=== PATIENT | male | born 1955 | race Caucasian/White ===

== ENCOUNTER 2021-10-29 06:00 | Inpatient (IN) | payer BC, OTHER, SELFPAY ==
[2021-10-25 11:14] LABS: BASOPHILS # (AUTO) 0.1 K/uL (0.0-0.2); BASOPHILS % (AUTO) 0.9 % (0.0-2.0); EOSINOPHILS # (AUTO) 0.6 K/uL (0.0-0.4); EOSINOPHILS % (AUTO) 8.7 % (0.0-4.0); HEMATOCRIT 41.2 % (36-54); HEMOGLOBIN 14.6 g/dL (14.0-18.0); LYMPHOCYTES # (AUTO) 1.4 K/uL (1.0-5.5); LYMPHOCYTES % (AUTO) 21.5 % (20.5-51.5); MEAN CORPUSCULAR HEMOGLOBIN 30 pg (27-31); MEAN CORPUSCULAR HGB CONC 36 % (32-36); MEAN CORPUSCULAR VOLUME 85 fL (79.0-98.0); MONOCYTES # (AUTO) 0.6 K/uL (0.0-1.0); MONOCYTES % (AUTO) 9.1 % (1.7-9.3); NEUTROPHILS # (AUTO) 3.8 K/uL (1.8-7.7); NEUTROPHILS % (AUTO) 59.8 % (40.0-70.0); PLATELET COUNT (AUTO) 207 K/uL (130-430); RED BLOOD CELL COUNT(AUTO) 4.85 MIL/uL (4.2-6.2); RED CELL DISTRIBUTION WIDTH 13.1 % (9.0-15.0); WHITE BLOOD COUNT (AUTO) 6.3 K/uL (4.8-10.8)
[2021-10-25 11:26] LABS: CALCIUM 8.6 mg/dL (8.4-11.0); CREATININE 0.86 mg/dL (0.55-1.30); POTASSIUM 3.9 mmol/L (3.5-5.1)
[2021-10-25 11:38] LABS: INR 0.9 (0.80-1.20); PROTHROMBIN TIME 9.4 SECS (9.5-12.5)
[2021-10-25 12:06] LABS: BILIRUBIN,URINE NEGATIVE (NEGATIVE); BLOOD, URINE NEGATIVE (NEGATIVE); CLARITY/URINE CLEAR (CLEAR); COLOR,URINE YELLOW (YELLOW); GLUCOSE,URINE NEGATIVE (NEGATIVE); KETONES,URINE NEGATIVE (NEGATIVE); LEUKOCYTE ESTERASE ,URINE NEGATIVE (NEGATIVE); NITRITE, URINE NEGATIVE (NEGATIVE); PH,URINE 6.5 (5.0-8.0); PROTEIN URINE NEGATIVE (NEGATIVE); UROBILINOGEN,URINE 0.2 (0.2-1.0)
[~2021-10-29] VITALS: Ht 188 cm; Wt 115.7 kg
[2021-10-29] MEDS ORDERED: METO50TA7 PO (07:00)
[2021-10-29] MEDS ORDERED: CEFAZOLIN 1 GM IVPB PREMIX 50 ML IV ONE (07:00)
[2021-10-29] MEDS ORDERED: AMLO10TA88 PO (07:00)
[2021-10-29] MEDS ORDERED: BENA40TA89 PO (07:00)
[2021-10-29] MEDS ORDERED: BUPIVACAINE LIPOSOME/PF 266 MG/20 ML VIAL INFIL ONE (07:02)
[2021-10-29] MEDS ORDERED: BISACODYL 10 MG/SUPPOSITORY RC PRN (07:30)
[2021-10-29] MEDS ORDERED: CEFAZOLIN 1 GM IVPB PREMIX 50 ML IV SCH (07:30)
[2021-10-29] MEDS ORDERED: D5/0.45 NS 1,000 ML IV ONE (07:30)
[2021-10-29] MEDS ORDERED: ACETAMINOPHEN 325 MG TABLET PO PRN (07:30)
[2021-10-29] MEDS ORDERED: DIPHENHYDRAMINE INJ 50 MG/ML VIAL IVP PRN (09:00)
[2021-10-29] MEDS ORDERED: NALOXONE HCL 0.4 MG/ML AMP (NARCAN) IVP PRN (09:00)
[2021-10-29] MEDS ORDERED: HYDROmorphone 1 MG/ML INJ. CARTRIDGE IVP PRN (09:00)
[2021-10-29] MEDS ORDERED: KETOROLAC TROMETHAMINE 60 MG/2 ML VIAL IM PRN (09:00)
[2021-10-29 11:30] VITALS: BP_SYST 149
--- NOTE | 2021-10-29 11:35 | NUR ---
PATIENT CAME VIA [facility] AAOX [facility]. VITALS SIGNS STABLE. AFEBRILE. LUNGS BILATERALLY CLEAR. ABDOMEN SOFT AND NON DISTENDED. HAS DRESSING ON THE LEFT LEG/THIGH WITH BARRIE BANDAGE ON IT. ATTACHED WITH [facility] ON IT. HAS IV ACCESS ON THE RT HAND #20 WITH LR INFUSING ON WELL. HAS LAWSON CATHETER DRAINING CLEAR YELLOW URINE. CALL LIGHTS WITHIN REACH. BED LOW POSITION, ALARMED AND LOCKED. WILL CONTINUE PATIENT COMPLAINED OF NAUSEA/VOMITTING X 1.
--- NOTE | 2021-10-29 11:39 | NUR ---
CONSULTATION PAGED/CALLED Reason for Consultation: [] S/P HIP REPLACEMENT Person Who was Notified: [] ANDREEA Consulting Physician: [] DR Bety ELKINS Director Of Placement Specialty: [] HOSPITALIST Ordering Physician: [] DR Daniel PAREKH
[2021-10-29 11:47] VITALS: BP_SYST 138
[2021-10-29] MEDS: ONDANSETRON HCL 4 MG/2 ML VIAL IVP PRN ×3 (12:20→21:15)
--- NOTE | 2021-10-29 12:20 | NUR ---
ZOFRAN 4 MG IV GIVEN. MADE COMFORTABLE.
--- NOTE | 2021-10-29 15:06 | NUR ---
PT EVAL AND INITIAL TREATMENT COMPLETED. PLAN OF CARE ESTABLISHED. CPM SET-UP COMPLETED AT INITIAL RANGE OF 0-60 DEGREES. PLEASE SEE EVAL FOR DETAILS.
[2021-10-29] MEDS: CEFAZOLIN 1 GM IVPB PREMIX 50 ML IV SCH (16:04)
[2021-10-29 16:16] VITALS: BP_SYST 148
--- NOTE | 2021-10-29 19:45 | NUR ---
Opening note Received patient awake, resting in bed, no distress. Surgical dressing on kneee is covered by hemalatha bandage and it is clean, dry, intact. Left knew is presently on CPM, with polar pack at bedside table. IVF infusing via IV to rt hand. Bed is locked in lowest position, side rails up, bed alarm on and call light w/in reach. updated board
[2021-10-29 20:00] VITALS: BP_SYST 125
--- NOTE | 2021-10-29 20:35 | NUR ---
Removed CPM patient tolerated, leg resting straight with pillow under heel.
[2021-10-29] MEDS: MORPHINE SULFATE 10 MG/ML VIAL IM PRN (21:16)
--- NOTE | 2021-10-29 21:28 | NUR ---
Pain med; zofran Reporting severe pain /10 and Morphine IM given as ordered. Has been having nausea and vomiting; administered Zofran.
[2021-10-30] MEDS: CEFAZOLIN 1 GM IVPB PREMIX 50 ML IV SCH (00:25)
[2021-10-30 00:30] VITALS: BP_SYST 125
[2021-10-30] MEDS: MORPHINE SULFATE 10 MG/ML VIAL IM PRN (01:33)
--- NOTE | 2021-10-30 01:33 | NUR ---
Pain med c/o pain to left leg; administered morphine as ordered. presently denies nausea and no longer vomiting
[2021-10-30] MEDS: HYDROcodone/ACETAMIN 7.5-325 MG TAB PO PRN ×2 (04:31→09:27)
--- NOTE | 2021-10-30 04:35 | NUR ---
pain med, ice water Patient reporting moderate pain; he reports noise in hallway woke him up (monitor alarms from nursing station). Bryant (Vicodin/Lortab) given as ordered. He requested ice water and it was provided
--- NOTE | 2021-10-30 05:00 | NUR ---
Nutrition Update Emiliano Scale 17 noted. Pt admitted for Unilateral Primary OA, Left knee Diet: Regular BMI: 32.7 kg/m2 RD to follow per nutrition care standards.
[2021-10-30 08:00] VITALS: BP_SYST 157
[2021-10-30] MEDS ORDERED: RIVAROXABAN 10 MG TABLET PO SCH (09:00)
--- NOTE | 2021-10-30 10:06 | NUR ---
Discharge Planning: VIJAY faxed referral to [facility] [phone] and [facility] [phone], DCP to kathie up. Addendum: 10/30/21 at 1313 by Cassy GARDNER VIJAY followed up on referral to [facility] [phone], per Bereket patient will be called for CPM and FWW delivery. [facility] [phone] not contracted with insurance. [facility] [phone] was sent patient referral and accepted. VIJAY made patient and CM, nurse aware. Disposition 06
[2021-10-30 12:00] VITALS: BP_SYST 160
[2021-10-30 15:41] VITALS: BP_SYST 165
[2021-10-30 16:00] VITALS: BP_SYST 165
== END 2021-10-30 17:15 | disposition home health service (06) | DRG 470 ==
LOC: SMU 06:00 → EDBD 07:30 → SMU 11:19
PROVIDERS: ADMIT Orthopaedic Surgery; ATTEND Orthopaedic Surgery
PROC: 0SRD0J9 Replacement of Left Knee Joint with Synthetic Substitute, Cemented, Open Approach (ICD-10-PCS; principal; 2021-10-29 07:52)
DX: M17.12 Unilateral primary osteoarthritis, left knee (principal); Z96.659 Presence of unspecified artificial knee joint; G89.29 Other chronic pain; F17.200 Nicotine dependence, unspecified, uncomplicated; Z20.822 Contact with and (suspected) exposure to COVID-19
CPT/HCPCS: 36415; 80048; 81003; 85025; 85610-TC; 85730-TC; 87081; 88305; 88311; 97039; 97116-GP; 97530-GP; C9290; J0690; J2270; J2405; U0003